=== PATIENT | female | born 1950 | race Caucasian/White ===

== ENCOUNTER → 2020-09-17 14:13 | Outpatient (CLI) | payer MEDICARE, OTHER, SELFPAY ==
--- NOTE | ~2020-09-17 | MM_ITS ---
EXAMINATION: MM screening [facility] BI w lupillo HISTORY: Screening mammogram TECHNIQUE: Craniocaudal and mediolateral oblique 3-D tomosynthesis images were obtained and synthetic 2-D images were generated. CAD analysis was submitted and interpreted. COMPARISON: 01/15/2019, 12/15/2017, 11/05/2016 BREAST PARENCHYMAL COMPOSITION: The breasts are heterogeneously dense, which may obscure small masses . FINDINGS: RIGHT BREAST: There is no evidence of suspicious mass, calcification, or architectural distortion to suggest malignancy. There has been no significant interval change. LEFT BREAST: An asymmetry is present in the middle third of the breast 6 cm from the nipple on the me diolateral oblique view. IMPRESSION: 1. Left breast asymmetry on the mediolateral oblique view. 2. Additional mammographic views and possible breast ultrasound are recommended. BI-RADS Category 0: Incomplete: Needs additional imaging evaluation. Reviewed, dictated and finalized at location A. IMPRESSION: 1. Left breast asymmetry on the mediolateral oblique view. 2. Additional mammographic views and possible breast ultrasound are recommended . BI-RADS Category 0: Incomplete: Needs additional imaging evaluation.
== END ==
PROVIDERS: Visit Provider Family Medicine
DX: Z12.31 Encounter for screening mammogram for malignant neoplasm of breast (principal); R92.8 Other abnormal and inconclusive findings on diagnostic imaging of breast
CPT/HCPCS: 77063; 77067

== ENCOUNTER → 2020-09-19 07:59 | Outpatient (CLI) | payer MEDICARE, SELFPAY ==
--- NOTE | ~2020-09-19 | MM_ITS ---
EXAMINATION: MM diagnostic mammo unilat LT HISTORY: Left breast asymmetry on screening mammogram TECHNIQUE: Additional 3-D tomosynthesis images of the left breast were performed and synthetic 2-D im ages were generated. CAD analysis was submitted and interpreted. COMPARISON: 09/17/2020, 01/15/2019, 12/15/2017, 11/05/2016 FINDINGS: The left breast asymmetry described on screening mammogram does not persist with spot compr ession. There is no evidence of suspicious mass, calcification, or architectural distortion to sugge st malignancy. IMPRESSION: 1. No mammographic evidence of malignancy. 2. Recommend routine screening mammography in one year. BI-RADS Category 1: Negative Reviewed, dictated and finalized at location A.
== END ==
PROVIDERS: PCP Family Medicine; Visit Provider Family Medicine
DX: R92.8 Other abnormal and inconclusive findings on diagnostic imaging of breast (principal)
CPT/HCPCS: 77065

== ENCOUNTER → 2022-02-13 10:02 | Outpatient (CLI) | payer MEDICARE, SELFPAY ==
--- NOTE | ~2022-02-13 | DEXA_ITS ---
Bone Density Report Name: JEN HOUSTON Age: 71 Sex: Female Ethnicity: White Date of : 1950 Indication: osteopenia; height loss; postmenopausal Referring Provider: HIMANSHU DOWNEY Study: Bone densitometry was performed. Exam Date: February 13, 2022 Accession number: [id number] Bone Density: Region BMD T-score Z-score Classification AP Spine (L1-L4) 0.879 -1.5 0.7 Osteopenia Femoral Neck (Left) 0.683 -1.5 0.4 Osteopenia Total Hip (Left) 0.823 -1.0 0.6 Normal Femoral Neck (Right) 0.670 -1.6 0.3 Osteopenia Total Hip (Right) 0.811 -1.1 0.5 Osteopenia Total Hip Mean 0.817 -1.1 0.6 Osteopenia World Health Organization criteria for BMD impression classify patients as: Normal (T-score at or above -1.0), Osteopenia (T-score between -1.0 and -2.5), or Osteoporosis (T-score at or below -2.5). 10-year Fracture Risk(1): Major Osteoporotic Fracture 9.9% Hip Fracture 1.7% Reported Risk Factors: [place] (), Neck BMD=0.670, BMI=22.1 (1) FRAX(R) Version 3.08. Fracture probability calculated for an untreated patient. Fracture probability may be lower if the patient has received treatment. Previous Exams: Region Exam Age BMD T-score BMD Change BMD Change Date g/cm2 vs Baseline vs Previous AP Spine(L1-L4) 02/13/2022 71 0.879 -1.5 0.003 -0.030* 01/15/2019 68 0.909 -1.3 0.032* 0.032* 07/21/2007 56 0.876 -1.6 Total Hip(Left) 02/13/2022 71 0.823 -1.0 -0.055* -0.043* 01/15/2019 68 0.866 -0.6 -0.012 -0.012 07/21/2007 56 0.878 -0.5 Total Hip(Right) 02/13/2022 71 0.811 -1.1 -0.080* -0.035* 01/15/2019 68 0.847 -0.8 -0.045* -0.045* 07/21/2007 56 0.892 -0.4 *Denotes significance at 95% confidence level, LSC for AP Spine = 0.022 g/cm2, LSC for Total Hip = 0.027 g/cm2 Clinical Information Provided by Patient: Has used the following medications: Vitamin D, Calcium, MTV Patient maximum height was 60.0 Menopause Age: 50 Drinks caffeinated beverages Onset of menses at age 14 Number of children 3 Impression: The patient has low bone mass, based on the Right Femoral Neck T-score. The patient has an estimated ten-year risk of hip fracture of 1.7% and an estimated ten-year risk of major fracture of 9.9%, based on the WHO FRAX algorithm. The BMD for the AP Spine(L1-L4) decreased, changing by -0.030 since the last
--- NOTE | ~2022-02-13 | MM_ITS ---
EXAMINATION: MM screening [facility] BI w lup[place] HISTORY: Screening mammogram TECHNIQUE: Craniocaudal and mediolateral oblique 3-D tomosynthesis images were obtained and synthetic 2-D images were generated. CAD analysis was submitted and interpreted. COMPARISON: 09/19/2020, 09/17/2020, 08/15/2019 BREAST PARENCHYMAL COMPOSITION: There are scattered areas of fibroglandular density. FINDINGS: There is no suspicious mass, calcification, or architectural distortion to suggest malignan cy in either breast. There has been no suspicious interval change. IMPRESSION: 1. No mammographic evidence of malignancy. 2. Recommend routine screening mammography in one year. BI-RADS Category 1: Negative Reviewed, dictated and finalized at location A.
== END ==
PROVIDERS: PCP Family Medicine; Visit Provider Family Medicine
DX: Z12.31 Encounter for screening mammogram for malignant neoplasm of breast (principal); M85.88 Other specified disorders of bone density and structure, other site; M85.852 Other specified disorders of bone density and structure, left thigh; M85.851 Other specified disorders of bone density and structure, right thigh
CPT/HCPCS: 77063; 77067; 77080

== ENCOUNTER 2022-11-02 13:17 | Outpatient (CLI) | payer MEDICARE, SELFPAY ==
[2022-11-02 14:21] LABS: Hematocrit 42.9 % (37.0-47.0); Hemoglobin 14.4 g/dL (12.0-15.0)
== END 2022-11-02 13:18 | disposition home or self-care (01) ==
PROVIDERS: PCP Family Medicine; Visit Provider Obstetrics & Gynecology
DX: N95.0 Postmenopausal bleeding (principal); Z01.818 Encounter for other preprocedural examination
CPT/HCPCS: 36415; 85014; 85018

== ENCOUNTER 2022-11-05 02:15 | Day surgery (SDC) | payer MEDICARE, SELFPAY ==
--- NOTE | 2022-11-01 13:10 | PC.NURSE ---
Report to the Outpatient Waiting Room, entrance under the green pavilion located off [facility], at time _0730 on date __11/05/22 . Planned Procedure Time: ___929 . Time changes happen often and if your time is changed the preop area will call you the afternoon before. - You and your visitor will be asked to self-screen and do not enter if you have any COVID symptoms. - Only one visitor is requested with a max of two and NO children visitors are allowed at this time. - The patient visitor may be requested to leave or wait in car when not with patient due to distancing restrictions. - A mask is optional within the hospital. Patients may have clear liquids (water, carbonated beverages, clear teas, apple juice) until 3 hours prior to surgery with a maximum of 20 ounces. - No food from midnight until time of surgery - Infants may have breast milk until 4 hours before surgery, formula 6 hours prior to surgery. - Children will be allowed to drink immediately following surgery. If applicable, please bring a bottle or sippy cup to assist with drinking. Juice, water, soda, and popsicles are readily available. For infants on formula, please bring formula the day of surgery. Pacifiers are allowed. Take the following medications with a SIP of water the morning of surgery: _NONE Medications to discontinue per physician ALL VITAMINS AND SUPPLEMENTS 3 DAYS PER OP Date to take last dose__11/01/22 Please no make-up, nail zimbabwean, hairspray, perfume, deodorant, or body powder the day of surgery. No jewelry (including any body piercings) or valuables the day of surgery, leave them at home. Please take a shower or bath the night before, or the morning of, surgery with an antibacterial soap. Wear comfortable, loose fitting clothing. Children are encouraged to wear pajamas. - Jewelry must be removed prior to entering the operating room. Rings and piercings that are not removed may be cut off. - The hospital will not accept responsibility for valuables. - Please leave all valuables, including medications, at home the day of surgery. If you are going home after surgery, a licensed jinriksha driver must drive you home. - NO public transportation without another adult if you receive anesthesia. - We recommend that an adult stay with you for 24 hours following discharge. - We also recommend that you do not drive, make important decision, drink alcoholic beverages, or take any drugs that were not prescribed by your health care provider for at least 24 hours after your discharge time. Follow any additional instructions given to you from your surgeon. If you or anyone in your household have experienced Covid symptoms in the past week, please notify your surgeon or the nurse liaison at the phone number below for possible testing. Telephone instructions given to __PATIENT and asked if any additional questions and then verbalized understanding. Patient advised to call surgeon office or pre surgery nurse liaison [phone] if any additional questions.
[2022-11-01 13:18] VITALS: BMI 22.4
--- NOTE | 2022-11-02 07:51 | P.HP_ITS ---
H&P: HPI History of Present Illness Date/Time: 11/02/22 07:51 Chief Complaint: Postmenopausal bleeding Narrative: 72-year-old female with postmenopausal bleeding. Ultrasound shows some fluid in the uterus so she was offered hysteroscopy/dilatation curettage. Risks and benefits reviewed in full detail. She received the ACOG handouts entitled hysteroscopy as well as dilatation curettage. She had all questions answered and asked to proceed PMFSH Social History Social History Smoking status: Never smoker Alcohol intake: current Drinks per week: 3 Spiritual care concerns: No Meds Home Medications and Allergies Home Medications Medication Instructions Recorded Confirmed Type Lactobacillus 1 cap PO DAILY 11/01/22 11/01/22 History acidophilus-Bifidobac.animalis 2.5 billion cell capsule (Daily Probiotic) aspirin 81 mg tablet,delayed 81 mg PO HS 11/01/22 11/01/22 History release (Adult Low Dose Aspirin) calcium carbonate 600 mg-vitamin 1 tablet PO DAILY 11/01/22 11/01/22 History D3 10 mcg (400 unit) tablet (Calcium 600 + D(3)) cholecalciferol (vitamin D3) 125 125 mcg PO 2XW 11/01/22 11/01/22 History mcg (5,000 unit) tablet estradiol 0.01% (0.1 mg/gram) 0.1 g vaginal 3XW 11/01/22 11/01/22 History vaginal cream ginkgo biloba 40 mg tablet 40 mg PO DAILY 11/01/22 11/01/22 History lorazepam 0.5 mg tablet 0.5 mg PO PRN PRN Anxiety 11/01/22 11/01/22 History sumatriptan succinate 100 mg tablet 100 mg PO PRN PRN Migraine Headache 11/01/22 11/01/22 History zolpidem 5 mg tablet 5 mg PO HS 11/01/22 11/01/22 History Allergies Allergy/AdvReac Type Severity Reaction Status Date / Time Sulfa (Sulfonamide Allergy Severe Muscle Unverified 11/01/22 12:58 Antibiotics) Spasms Penicillins Allergy Mild Unknown Unverified 11/01/22 12:58 Exam Const: General: cooperative, healthy appearing, comfortable and well groomed Nutritional Appearance: average body habitus Orientation/consciousness: oriented to person, oriented to place and oriented to time Resp: Effort & Inspection: normal respiratory effort Cardio: Rate: regular rate Rhythm: regular rhythm Heart sounds: S1 normal heart sound present and S2 normal heart sound present GI: Inspection: normal to inspection : External Female Exam: normal external appearance Speculum Exam - Vagina: normal appearance of the vagina and vaginal bleeding Speculum Exam - Cervix: normal appearance of the cervix Bimanual exam- vagina & uterus: non- tender and enlarged Bimanual Exam- Adnexa, other: normal adnexae Assessment and Plan Assessment and plan (1) Postmenopausal bleeding: Code(s): N95.0 - Postmenopausal bleeding Status: Acute Plan Hysteroscopy/dilatation and curettage
--- NOTE | 2022-11-05 06:10 | WPDHPUPDATE1 ---
History and Physical Update Update Date/Time: 11/05/22 06:10 History and Physical has been reviewed, including an updated exam of the patient. There are NO changes in the patient's condition. Risks, benefits, and alternatives have been discussed and questions answered. Patient agrees to proceed with procedure.
[2022-11-05 07:40] VITALS: BP 125/70; PULSE 88; RESP 14; TEMP 36.1; O2SAT 100; BMI 21.9
[2022-11-05] MEDS: LACTATED RINGERS 1,000 ML 30 ML IV CONT (07:50)
[2022-11-05] MEDS: ACETAMINOPHEN 500 MG TABLET 1000 MG PO (07:59)
--- NOTE | 2022-11-05 08:33 | WPDANESEPPF ---
Anes - Initial Pre Proc Eval Procedure: Operation Date: 11/05/22 09:30 Proposed Procedures p Hysteroscopy, Dilation and Curettage - Mega Fortune MD Date/Time: 11/05/22 08:33 Surgeon: Mega Fortune MD Pre Op Diagnosis: post menopausal bleeding Patient Data Age: 72 Gender: F Height: 1.47 m Weight: 47.55 kg Last Vital Signs Temp 36.1 C L 11/05/22 07:40 Pulse 88 11/05/22 07:40 Resp 14 11/05/22 07:40 BP 125/70 11/05/22 07:40 Pulse Ox 100 11/05/22 07:40 O2 Del Method Room Air 11/05/22 07:40 Allergies Allergy/AdvReac Type Severity Reaction Status Date / Time Sulfa (Sulfonamide Allergy Severe Muscle Verified 11/05/22 07:46 Antibiotics) Spasms Penicillins Allergy Mild Unknown Verified 11/05/22 07:46 Home Medications Medication Instructions Recorded Confirmed Type Lactobacillus 1 cap PO DAILY 11/01/22 11/05/22 History acidophilus-Bifidobac.animalis 2.5 billion cell capsule (Daily Probiotic) aspirin 81 mg tablet,delayed 81 mg PO HS 11/01/22 11/01/22 History release (Adult Low Dose Aspirin) calcium carbonate 600 mg-vitamin 1 tablet PO DAILY 11/01/22 11/05/22 History D3 10 mcg (400 unit) tablet (Calcium 600 + D(3)) cholecalciferol (vitamin D3) 125 125 mcg PO 2XW 11/01/22 11/05/22 History mcg (5,000 unit) tablet estradiol 0.01% (0.1 mg/gram) 0.1 g vaginal 3XW 11/01/22 11/01/22 History vaginal cream ginkgo biloba 40 mg tablet 40 mg PO DAILY 11/01/22 11/05/22 History lorazepam 0.5 mg tablet 0.5 mg PO PRN PRN Anxiety 11/01/22 11/01/22 History sumatriptan succinate 100 mg tablet 100 mg PO PRN PRN Migraine Headache 11/01/22 11/01/22 History zolpidem 5 mg tablet 5 mg PO HS 11/01/22 11/01/22 History hydrocodone 5 mg-acetaminophen 325 1 tablet PO Q4H PRN pain #14 tabs 11/05/22 Rx mg tablet Patient hx anesthesia problems: none Family hx anesthesia problems: none Results Review: All pre-operative results and documents have been reviewed as part of the pre-operative evaluation. [facility] Social History Social History Smoking status: Never smoker Alcohol intake: current Drinks per week: 3 Living arrangements: with family Spiritual care concerns: No Anes - Eval Final PreProcedure Day of Procedure 11/05/22 08:33 Patient weight: normal Heart: regular rate and rhythm Lungs: clear to auscultation Airway: Mallampati scale class II Neurological: alert and oriented Last oral intake: >/= 8 hours ASA classification: II Emergent: no Anesthetic plan: proceed Anesthesia type and monitoring: general GIVS and standard monitoring Results Review: All pre-operative results and documents have been reviewed as part of the pre-operative evaluation. Informed Consent: The patient's anesthetic plan and its attendant risks and benefits were discussed with the patient/family/POA. Questions were solicited and answers provided to the satisfaction of the patient/family/POA.
[2022-11-05] MEDS: LIDOCAINE HCL 1% PF 30 ML VIAL 10 ML INFILTRATE (09:14)
[2022-11-05 09:21] VITALS: BP 133/103; PULSE 69; RESP 16; O2SAT 97
--- NOTE | 2022-11-05 09:22 | P.OP_ITS ---
Procedure Note - Detailed Date of Procedure 11/05/22 Pre-op Diagnosis post menopausal bleeding Post-op Diagnosis Same Procedure Performed Hysteroscopy/dilatation curettage Surgeon Mega Fortune MD Anesthesia MAC and Local Indications 72-year-old female with fluid in the uterus questionable postmenopausal bleeding Findings cervical os was stenotic. Once in the uterus sounded to 8cm. Mucus was present was clear slimy appearance. Each fallopian tube could be seen seen and no other abnormality seen otherwise Description of Procedure patient was prepped draped in the normal sterile fashion placed in the dorsal lithotomy position. Under excellent IV sedation weighted speculum placed in posterior fornix vagina. Anterior lip of the cervix grasped with single-tooth tenaculum. 2.5cc 1% xylocaine anesthesia placed at 2, 4, 8, 10:00 a.m. of the cervix. The cervical os was noted be stenotic and os Finders were found. After opening os the uterus sounded to 8cm. Serial dilatation with fragmented d ilators performed followed by passage of the 5mm visualizing hysteroscope. Normal saline was used as visualizing medium. Mucus was present but no a abnormalities seen after each fallopian tube os could be seen. The uterus was then scraped over the entire 360? until a good grating sound was heard. The instruments removed all were accounted for she tolerated the procedure well. All sponge, needle, instrument counts were correct. There were no immediate complications Estimated Blood Loss 5 Drains No Packing No Pathology Yes Complications No immediate complications Condition Stable Disposition PACU
[2022-11-05 09:45] VITALS: BP 105/64; PULSE 71; RESP 20
[2022-11-05 10:15] VITALS: BP 105/64; PULSE 71; RESP 20
== END 2022-11-05 10:20 | disposition home or self-care (01) ==
PROVIDERS: PCP Family Medicine; Visit Provider Obstetrics & Gynecology
PROC: 0U5B8ZZ Destruction of Endometrium, Via Natural or Artificial Opening Endoscopic (ICD-10-PCS; CPT 58563; principal; 2022-11-05 09:30)
DX: N95.0 Postmenopausal bleeding (principal); N85.8 Other specified noninflammatory disorders of uterus
CPT/HCPCS: 58558; 88305; A9270; J2704; J7030; J7120

== ENCOUNTER 2023-10-19 10:07 | Outpatient (CLI) | payer MEDICARE, SELFPAY ==
--- NOTE | 2023-10-19 10:03 | EST_ITS ---
Patient Info Name: Nora Monteiro Age: 73 years : 1950 Gender: Female Ht: 58 in Wt: 110 lbs BSA: 1.44 m2 HR: 77 bpm BP: 139 / 84 mmHg Heart Rhythm: Sinus Rhythm Exam Date: 10/19/2023 10:05 AM Exam Location: Echo Lab Patient Status: Outpatient Admit Date: 10/19/2023 Staff Ordering Physician: Moises Domingo MD Family Day Care Provider: Lily Palma RDCS Attending Provider: Referring Physician: Jose L REID; Exercise Technologist: Lily Palma RDCS Exercise Physician: Yevgeniy Pena DO Exam Type: CA stress echo Study Info Indications R07.9 - Chest pain, unspecified Treadmill exercise stress echocardiogram is performed. Summary 1. 1. Negative Fidel exercise stress test for ischemic ST changes by ECG criteria. 2. 2. Reduced functional capacity, achieving 4.7 METs of workload. 3. 3. Appropriate HR response to exercise. 4. 4. Appropriate HR recovery at 1 minute post exercise. 5. 5. Negative stress echocardiogram for ischemia by wall motion analysis. 6. 6. Patient informed of the above results. Stress Echo Findings Left Ventricle Appropriate increase in LV endocardial thickening with systole. Appropriate augmentation of contactility with systole. No wall motion abnormality. Left Ventricle Normal LV systolic function, no wall motion abnormality. Protocol: Fidel Stress ECG Details Stage: REST Duration (min): 1 min : 19 sec Speed (mph): 0.0 Grade (%): 0 HR (bpm): 76 SBP (mmHg): 139 DBP (mmHg): 84 METS: --- Stage: REST Duration (min): 1 min : 53 sec Speed (mph): 0.0 Grade (%): 0 HR (bpm): 81 SBP (mmHg): 139 DBP (mmHg): 84 METS: --- Stage: REST Duration (min): 12 min : 31 sec Speed (mph): 0.0 Grade (%): 0 HR (bpm): 79 SBP (mmHg): 139 DBP (mmHg): 84 METS: --- Stage: STAGE 1 Duration (min): 1 min : 0 sec Speed (mph): 1.7 Grade (%): 10 HR (bpm): 122 SBP (mmHg): 139 DBP (mmHg): 84 METS: --- Stage: STAGE 1 Duration (min): 2 min : 0 sec Speed (mph): 1.7 Grade (%): 10 HR (bpm): 133 SBP (mmHg): 139 DBP (mmHg): 84 METS: --- Stage: STAGE 1 Duration (min): 3 min : 0 sec Speed (mph): 1.7 Grade (%): 10 HR (bpm): 133 SBP (mmHg): 141 DBP (mmHg): 98 METS: --- Stage: STAGE 2 Duration (min): 0 min : 8 sec Speed (mph): 0.0 Grade (%): 0 HR (bpm): 132 SBP (mmHg): 141 DBP (mmHg): 98 METS: --- Stage: RECOVERY Duration (min): 0 min : 51 sec Speed (mph): 0.0 Grade (%): 0 HR (bpm): 95 SBP (mmHg): 141 DBP (mmHg): 98 METS: --- Stage: RECOVERY Duration (min): 1 min : 51 sec Speed (mph): 0.0 Grade (%): 0 HR (bpm): 85 SBP (mmHg): 141 DBP (mmHg): 98 METS: --- Stage: RECOVERY Duration (min): 2 min : 51 sec Speed (mph): 0.0 Grade (%): 0 HR (bpm): 75 SBP (mmHg): 141 DBP (mmHg): 98 METS: --- Stage: RECOVERY Duration (min): 3 min : 15 sec Speed (mph): 0.0 Grade (%): 0 HR (bpm): 93 SBP (mmHg): 141 DBP (mmHg): 98 METS: --- Res
== END 2023-10-19 10:08 | disposition home or self-care (01) ==
LOC: ANHCARD 10:07
PROVIDERS: PCP Family Medicine; Visit Provider Family Medicine
DX: R06.02 Shortness of breath (principal); R07.9 Chest pain, unspecified
CPT/HCPCS: 93351

== ENCOUNTER → 2023-11-07 12:49 | Outpatient (CLI) | payer MEDICARE, SELFPAY ==
--- NOTE | ~2023-11-07 | MM_ITS ---
EXAMINATION: MM screening [facility] BI w lup[place] HISTORY: Screening mammogram TECHNIQUE: Craniocaudal and mediolateral oblique 3-D tomosynthesis images were obtained and synthetic 2-D images were generated. CAD analysis was submitted and interpreted. COMPARISON: 02/13/2022 bilateral screening mammogram 09/19/2020 diagnostic left mammogram 09/17/2020, bilateral screening mammogram examinations BREAST PARENCHYMAL COMPOSITION: The breasts are heterogeneously dense, which may obscure small masses . FINDINGS: There is no evidence of suspicious mass, calcification, or architectural distortion to sugg est malignancy in either breast. There has been no suspicious interval change. IMPRESSION: 1. No mammographic evidence of malignancy. 2. Recommend routine screening mammography in one year. BI-RADS Category 1: Negative Reviewed, dictated and finalized at location A. [employer]ICAL ASSISTANT
== END ==
PROVIDERS: PCP Family Medicine; Visit Provider Family Medicine
DX: Z12.31 Encounter for screening mammogram for malignant neoplasm of breast (principal)
CPT/HCPCS: 77063; 77067

== ENCOUNTER 2024-03-30 09:52 | Outpatient (CLI) | payer MEDICARE, SELFPAY | END 2024-03-30 09:53 | disposition home or self-care (01) | LOC: ANHAUDIO 09:53 | PROVIDERS: PCP Family Medicine; Visit Provider Family Medicine | DX: H90.3 Sensorineural hearing loss, bilateral (principal) | CPT/HCPCS: 92557; 92567 ==

== ENCOUNTER 2024-05-03 09:07 | Day surgery (SDC) | payer MEDICARE, SELFPAY ==
[2024-04-20 09:34] VITALS: BMI 24.2
[2024-05-03 10:11] VITALS: BMI 23.3
[2024-05-03] MEDS: LACTATED RINGERS 1,000 ML 150 ML IV CONT (10:22)
--- NOTE | 2024-05-03 10:51 | PM.HPGS ---
History of Present Illness History of Present Illness Consent: Risks, benefits, and alternatives have been discussed and questions answered. Patient agrees to proceed with procedure. Chief complaint: Family HX Colon CA, Personal HX Colon Polyps Narrative: Nora Monteiro is a 73 year old female presents for screening colonoscopy. Patient's current weight appetite and bowel movements are normal. She denies abdominal pain. Patient has had no bleeding. Family history significant that her brother had colon cancer. Patient's past history also significant for a tubulovillous adenoma removed in 2019 and adenomatous on previous colonoscopies as well. Patient presents today for screening colonoscopy. Review of Systems Review of Systems: All systems reviewed & are unremarkable except as noted in HPI and below PMFSH Past Medical History Medical History Disorder of bone, unspecified Family history of malignant neoplasm of digestive organs Insomnia, unspecified Migraine without aura, not intractable, without status migrainosus Panic disorder [episodic paroxysmal anxiety] Postmenopausal atrophic vaginitis Postmenopausal bleeding Primary generalized (osteo)arthritis Pure hypercholesterolemia, unspecified Surgical History Surgical History H/O dilation and curettage Social History Social History (Updated 04/17/24 @ 14:07 by China Larson MA) Smoking status: Never smoker Second hand tobacco smoke exposure: No Alcohol intake: current Drinks per week: 4 Substance use: never Substance use type: does not use Do You Feel Safe in your Home?: Yes Lack of Transportation: No Lack of Food: Never True Current Housing: I Have Housing Concerned About Future Housing: No Difficulty Paying Gas/Electric Bills: No Difficulty Paying for Meds: No Currently Unemployed: YES Difficulty w/ Childcare or Family Care: No Living arrangements: with family Occupation/Education: retired Gender identity (if verbalized by the patient): Female Sexual Orientation (if Verbalized by the Patient): Straight or Heterosexual Spiritual care concerns: No Meds Home Medications and Allergies Home Medications Medication Instructions Recorded Confirmed Type Lactobacillus 1 cap PO DAILY 11/01/22 05/03/24 History acidophilus-Bifidobac.animalis 2.5 billion cell capsule (Daily Probiotic) aspirin 81 mg tablet,delayed 81 mg PO HS 11/01/22 05/03/24 History release (Adult Low Dose Aspirin) calcium carbonate 600 mg-vitamin 1 tablet PO DAILY 11/01/22 05/03/24 History D3 10 mcg (400 unit) tablet (Calcium 600 + D(3)) cholecalciferol (vitamin D3) 125 125 mcg PO 2XW 11/01/22 05/03/24 History mcg (5,000 unit) tablet ginkgo biloba 40 mg tablet 40 mg PO DAILY 11/01/22 05/03/24 History lorazepam 0.5 mg tablet 0.5 mg PO DAILY PRN Anxiety #60 09/29/23 04/26/24 Rx tabs escitalopram oxalate 10 mg tablet 10 mg PO DAILY #90 tabs 12/30/23 05/03/24 Rx sumatriptan succinate 100 mg tablet 100 mg PO PRN PRN Migraine 01/03/24 05/03/24 Rx Headache #9 tabs estradiol 0.01% (0.1 mg/gram) See Rx Instructions .Route 03/28/24 05/03/24 Rx vaginal cream .COMPLEX #43 grams zolpidem 5 mg tablet 5 mg PO HS #90 tabs 04/10/24 05/03/24 Rx Allergies Allergy/AdvReac Type Severity Reaction Status Date / Time Sulfa (Sulfonamide Allergy Severe Muscle Verified 05/03/24 10:04 Antibiotics) Spasms Penicillins Allergy Mild Unknown Verified 05/03/24 10:04 Exam Narrative: Physical exam reveals patient signs stable. HEENT is unremarkable. Patient is anicteric. Is are clear to auscultation and percussion. Heart is without murmur or extra sounds. Abdomen bowel sounds are present soft nontender with no organomegaly. Digital external rectal exam is normal. Assessment and Plan Assessment and plan (1) Family history
--- NOTE | 2024-05-03 11:08 | WPDANESEPPF ---
Anes - Initial Pre Proc Eval Procedure: Operation Date: 05/03/24 11:30 Proposed Procedures p Diagnostic Colonoscopy - Fernando Mason MD Date/Time: 05/03/24 11:08 Surgeon: Fernando Mason MD Pre Op Diagnosis: Family HX Colon CA, Personal HX Colon Polyps Patient Data Age: 73 Gender: F Height: 1.47 m Weight: 50.8 kg Allergies Allergy/AdvReac Type Severity Reaction Status Date / Time Sulfa (Sulfonamide Allergy Severe Muscle Verified 05/03/24 10:04 Antibiotics) Spasms Penicillins Allergy Mild Unknown Verified 05/03/24 10:04 Home Medications Medication Instructions Recorded Confirmed Type Lactobacillus 1 cap PO DAILY 11/01/22 05/03/24 History acidophilus-Bifidobac.animalis 2.5 billion cell capsule (Daily Probiotic) aspirin 81 mg tablet,delayed 81 mg PO HS 11/01/22 05/03/24 History release (Adult Low Dose Aspirin) calcium carbonate 600 mg-vitamin 1 tablet PO DAILY 11/01/22 05/03/24 History D3 10 mcg (400 unit) tablet (Calcium 600 + D(3)) cholecalciferol (vitamin D3) 125 125 mcg PO 2XW 11/01/22 05/03/24 History mcg (5,000 unit) tablet ginkgo biloba 40 mg tablet 40 mg PO DAILY 11/01/22 05/03/24 History lorazepam 0.5 mg tablet 0.5 mg PO DAILY PRN Anxiety #60 09/29/23 04/26/24 Rx tabs escitalopram oxalate 10 mg tablet 10 mg PO DAILY #90 tabs 12/30/23 05/03/24 Rx sumatriptan succinate 100 mg tablet 100 mg PO PRN PRN Migraine 01/03/24 05/03/24 Rx Headache #9 tabs estradiol 0.01% (0.1 mg/gram) See Rx Instructions .Route 03/28/24 05/03/24 Rx vaginal cream .COMPLEX #43 grams zolpidem 5 mg tablet 5 mg PO HS #90 tabs 04/10/24 05/03/24 Rx Patient hx anesthesia problems: none Family hx anesthesia problems: none Results Review: All pre-operative results and documents have been reviewed as part of the pre-operative evaluation. [facility] Past Medical History Medical History Disorder of bone, unspecified Family history of malignant neoplasm of digestive organs Insomnia, unspecified Migraine without aura, not intractable, without status migrainosus Panic disorder [episodic paroxysmal anxiety] Postmenopausal atrophic vaginitis Postmenopausal bleeding Primary generalized (osteo)arthritis Pure hypercholesterolemia, unspecified Surgical History Surgical History H/O dilation and curettage Social History Social History Smoking status: Never smoker Second hand tobacco smoke exposure: No Alcohol intake: current Drinks per week: 4 Substance use: never Substance use type: does not use Do You Feel Safe in your Home?: Yes Lack of Transportation: No Lack of Food: Never True Current Housing: I Have Housing Concerned About Future Housing: No Difficulty Paying Gas/Electric Bills: No Difficulty Paying for Meds: No Currently Unemployed: YES Difficulty w/ Childcare or Family Care: No Living arrangements: with family Occupation/Education: retired Gender identity (if verbalized by the patient): Female Sexual Orientation (if Verbalized by the Patient): Straight or Heterosexual Spiritual care concerns: No Anes - Eval Final PreProcedure Day of Procedure 05/03/24 11:08 Patient weight: normal Heart: regular rate and rhythm Lungs: clear to auscultation Airway: Mallampati scale class II Neurological: alert and oriented Last oral intake: >/= 8 hours ASA classification: II Emergent: no Anesthetic plan: proceed Anesthesia type and monitoring: general GIVS and standard monitoring Results Review: All pre-operative results and documents have been reviewed as part of the pre-operative evaluation. Informed Consent: The patient's anesthetic plan and its attendant risks and benefits were discussed with the patient/family/POA. Questions were solicited and answers provided to the satisfaction of the
[2024-05-03 11:46] VITALS: BP 99/59; PULSE 90; RESP 15; O2SAT 100
[2024-05-03 11:56] VITALS: BP 96/66; PULSE 91; RESP 16; O2SAT 100
--- NOTE | 2024-05-03 11:58 | WPDANESPN ---
Anes - Prog Note Post-Op Date/Time: 05/03/24 11:58 Cardiovascular status: normal Respiratory status: normal Airway patency: baseline Mental status: baseline Post-Op hydration status: normal Vital Signs: Last Vital Signs Pulse 91 05/03/24 11:56 Resp 16 05/03/24 11:56 BP 96/66 L 05/03/24 11:56 Pulse Ox 100 05/03/24 11:56 O2 Del Method Room Air 05/03/24 11:56 Pain Score (VAS): 0/10 I/O: Intake & Output 05/02/24 05/03/24 05/03/24 23:59 07:59 15:59 Intake Total 700 Balance 700 Patient Feedback: Patient satisfied with anesthetic care.
[2024-05-03 12:06] VITALS: BP 109/56; PULSE 96; RESP 16; O2SAT 100
== END 2024-05-03 12:09 | disposition home or self-care (01) ==
PROVIDERS: PCP Family Medicine; Visit Provider Internal Medicine Gastroenterology
PROC: 0DJD8ZZ Inspection of Lower Intestinal Tract, Via Natural or Artificial Opening Endoscopic (ICD-10-PCS; CPT 45378; principal; 2024-05-03 11:30)
DX: Z86.010 Personal history of colon polyps (principal); Z80.0 Family history of malignant neoplasm of digestive organs; K57.30 Diverticulosis of large intestine without perforation or abscess without bleeding; K64.8 Other hemorrhoids
CPT/HCPCS: G0105

== ENCOUNTER 2024-07-19 10:22 | Outpatient (CLI) | payer MEDICARE, SELFPAY ==
--- NOTE | ~2024-07-19 | CT_ITS ---
Non-contrast CT scan of the Abdomen and Pelvis Clinical indication: Abdominal distention Technique: 2.5 mm axial scans were obtained through the abdomen and pelvis without intravenous or or al contrast. Dose reduction technique was used on this scan by utilizing automated exposure control a nd iterative reconstruction technique. The dose-length product (DLP) was 205.30 mGy-cm. Findings: Images through the lung bases reveal no abnormalities. There is no evidence of renal or ureteral calculi. The kidneys and the ureters are nondilated. The liver, spleen, pancreas, gallbladder, and adrenals appear normal. There are atherosclerotic calcifications of the aorta. There is no evidence of bowel obstruction. Images through the pelvis were performed. There is no evidence of ascites or lymphadenopathy. Urinary bladder unremarkable. No pelvic mass seen. Impression: No significant abnormality seen. Reviewed, dictated and finalized at [facility]. Impression: No significant abnormality seen.
== END 2024-07-19 10:23 | disposition home or self-care (01) ==
LOC: ANHIMG 10:24
PROVIDERS: PCP Family Medicine; Visit Provider Family Medicine
DX: R14.0 Abdominal distension (gaseous) (principal); R63.0 Anorexia
CPT/HCPCS: 74176

== ENCOUNTER 2025-06-17 08:02 | Outpatient (CLI) | payer MEDICARE, SELFPAY ==
--- NOTE | ~2025-06-17 | DEXA_ITS ---
Bone Density Report Name: JEN HOUSTON Age: 74 Sex: Female Ethnicity: White Date of : 1950 Indication: osteopenia; height loss; Referring Provider: HIMANSHU DOWNEY Study: Bone densitometry was performed. Exam Date: June 17, 2025 Accession number: [id number] Bone Density: Region BMD T-score Z-score Classification AP Spine(L1-L4) 0.848 -1.8 0.6 Osteopenia Femoral Neck (Left) 0.643 -1.9 0.2 Osteopenia Total Hip (Left) 0.871 -0.6 1.2 Normal Femoral Neck (Right) 0.648 -1.8 0.3 Osteopenia Total Hip (Right) 0.863 -0.6 1.1 Normal Total Hip Mean 0.867 -0.6 1.2 Normal World Health Organization criteria for BMD impression classify patients as: Normal (T-score at or above -1.0), Osteopenia (T-score between -1.0 and -2.5), or Osteoporosis (T-score at or below -2.5). 10-year Fracture Risk(1): Major Osteoporotic Fracture 12% Hip Fracture 2.9% Reported Risk Factors: [place] (), Neck BMD=0.643, BMI=24.5 (1) FRAX(R) Version 3.08. Fracture probability calculated for an untreated patient. Fracture probability may be lower if the patient has received treatment. Previous Exams: Region Exam Age BMD T-score BMD Change BMD Change Date g/cm2 vs Baseline vs Previous AP Spine (L1-L4) 06/17/2025 74 0.848 -1.8 -0.022 (-2.5%) -0.075 (-8.1%) 10/13/2015 65 0.923 -1.1 0.053 (6.1%)# 0.053 (6.1%)# 08/25/2013 62 0.869 -1.6 Total Hip(Left) 06/17/2025 74 0.871 -0.6 0.004 (0.5%)# 0.002 (0.2%) 10/13/2015 65 0.869 -0.6 0.002 (0.3%)# 0.002 (0.3%)# 08/25/2013 62 0.867 -0.6 Total Hip(Right) 06/17/2025 74 0.863 -0.6 -0.042 (-4.7%) -0.004 (-0.5%) 10/13/2015 65 0.868 -0.6 -0.038 (-4.2%) -0.038 (-4.2%) 08/25/2013 62 0.905 -0.3 *Denotes significance at 95% confidence level, LSC for AP Spine = 0.022 g/cm2, LSC for Total Hip = 0.027 g/cm2 # Denotes dissimilar scan types or analysis methods Clinical Information Provided by Patient: Has used the following medications: Vitamin D, Calcium Patient maximum height was 60.0 Drinks caffeinated beverages Onset of menses at age 14 Number of children 3 Impression: The patient has low bone mass, based on the Left Femoral Neck T-score. The patient has an estimated ten-year risk of hip fracture of 2.9% and an estimated ten-year risk of major fracture of 12%, based on the WHO FRAX algorithm. The BMD for the AP Spine (L1-L4) decreased, changing by -8.1% since the last DXA exam. Discussion: BONE DENSITY IS LOW AT ONE OR MORE SKELETAL SITES. This patient's lowest T-score is low at one or more skeletal sites. It meets the World Health Organization's (WHO) criteria for ?low bone mass? (T-score between -1.0 and -2.5). The patient's 10-year risk of fracture as calculated by FRAX is less than the threshold where pharmacological therapy is recommended by the National Osteoporosis Foundation (NOF). However, all treatment decisions require clinical judgment and consideration of individual patient factors, including patient preferences, comorbidities, previous drug use, risk factors not captured in the FRAX model (e.g., frailty, falls, vitamin D deficiency, increased bone turnover, interval significant decline in bone density) and possible under or overestimation of fracture risk by FRAX. The patient should follow a healthful lifestyle (good nutrition with adequate calcium and vitamin D, and appropriate weight-bearing exercise). Follow-Up: Consider repeating this study in 2 years to reassess this patient's status, or sooner if there is some new clinical indication. Reported by: JADE on 06/17/2025 8:40:00 AM. Reviewed, dictated and finalized at location A.
--- OUTSIDE RECORDS SUMMARY | 2025-06-17 08:09 | XMS_ITS | Encounter Summary ---
Author Organization [facility] Facility Care Team Providers Care Milk Wagon Driver Name Role Phone Moises Domingo MD Primary Care Provider [phone] Encounter Details Date Type Department Care Team (Latest Contact Info) Description 08/25/2017 Orders Only [facility] CLINCONV ProviderManuel MD [address] [place] [id number] Social History Tobacco Use Types Packs/Day Years Used Date Smoking Tobacco: Never Assessed Comments Unknown Sex and Gender Information Value Date Recorded Sex Assigned at Not on file Legal Sex Female 2:47 AM PAPER SLITTER Gender Identity Not on file Sexual Orientation Not on file documented as of this encounter Plan of Treatment Not on file documented as of this encounter Procedures Procedure Name Priority Date/Time Associated Diagnosis Comments PROCEDURE - RESULT 08/16/2017 12 :00 AM CDT documented in this encounter Results * PROCEDURE - RESULT (08/16/2017 12:00 AM CDT) Narrative 08/16/2017 12:00 AM CDT Ordered by an unspecified provider. Historical Provider Final Res ult documented in this encounter Visit Diagnoses Not on filedocumented in this encounter Care Teams Milk Wagon Driver Relationship Specialty Start Date End Date Moises Domingo MD [facility] [place] [address] PCP - General 01/12/13 documented as of this encounter
--- OUTSIDE RECORDS SUMMARY | 2025-06-17 08:09 | XMS_ITS | Encounter Summary ---
Author Organization [facility] Facility Care Team Providers Care Film Printer Name Role Phone Moises Domingo MD Primary Care Provider [phone] Encounter Details Date Type Department Care Team (Latest Contact Info) Description 07/21/2017 Orders Only [facility] CLINCONV ProviderManuel MD [address] [place] [id number] Social History Tobacco Use Types Packs/Day Years Used Date Smoking Tobacco: Never Assessed Comments Unknown Sex and Gender Information Value Date Recorded Sex Assigned at Not on file Legal Sex Female 2:47 AM MARKETING LEAD Gender Identity Not on file Sexual Orientation Not on file documented as of this encounter Plan of Treatment Not on file documented as of this encounter Procedures Procedure Name Priority Date/Time Associated Diagnosis Comments PROCEDURE - RESULT 07/11/2017 12 :00 AM CDT documented in this encounter Results * PROCEDURE - RESULT (07/11/2017 12:00 AM CDT) Narrative 07/11/2017 12:00 AM CDT Ordered by an unspecified provider. Historical Provider Final Res ult documented in this encounter Visit Diagnoses Not on filedocumented in this encounter Care Teams Film Printer Relationship Specialty Start Date End Date Moises Domingo MD [facility] [place] [address] PCP - General 01/12/13 documented as of this encounter
--- OUTSIDE RECORDS SUMMARY | 2025-06-17 08:09 | XMS_ITS | Clinical Summary ---
Author Organization [facility] at the [facility] [place] Address [address] [place] [address] Care Team Providers Care Underwear Cutter Name Role Phone oMises Domingo MD Primary Care Provider [phone] Allergies Active Allergy Reactions Criticality Noted Date Comments Penicillin V Potassium Anaphylaxis High 08/13/2019 anaphylaxis Sulfa (Sulfonamide Antibiotics) Other (See comments) Low 08/13/2019 back paralysis Medications estrogens, conjugated (PREMARIN ORAL) Rx: Premarin A ctive SUMAtriptan (IMITREX) 25 mg tablet Rx: Sumatriptan Acti ve zolpidem (AMBIEN) 5 mg tablet 0 9 Active HYDROcodone-magen taminophen (NORCO) 5-325 mg per tablet 9 Active Active Problems Problem Noted Date Diagnosed Date Sleep disorder 08/23/2019 Migraine 08/23/2019 Varicose veins of both lower extremities with pa in 07/07/2017 Immunizations Immunization Administration Dates Next Due Influenza, Trivalent, High D ose, Split, Preservative Free, Intramuscular 10/02/2016,09/30/2015 Influenza, Trivalent, IM (MDV) 09/16/2014 Pneumococcal Conjugate PCV 13 09/30/2015 Surgical History Surgery Date Site/Laterality Comments SECTION BREAST LUMPECTOMY VARICOSE VEIN SURGERY 07/21/2017 Left LT GSV EVLT VARICOSE VEIN SURGERY 08/25/2017 Right RT GSV EVLT VEIN SURGERY 10/10/2019 Right Medical History Medical History Date Comments Arthritis Family History Medical History Relation Name Comments Cancer Father Diabetes Father Heart disease Father Stroke Father Kidney failure Mother Relation Name Status Comments Father Alive Mother Social History Tobacco Use Types Packs/Day Years Used Date Smoking Tobacco: Never Smokeless Tobacco: Never Alcohol Use Standard Drinks/Week Comments Yes 0 (1 standard drink = 0.6 oz pur e alcohol) AUDIT-C Answer Date Recorded Frequency of Alcohol Consumption 2-4 times a tue08/23/2019 Average Number of Drinks Not on file 019 Frequency of Binge Drinking Not on file 01/2019 Comments Unknown Sex and Gender Information Value Date Recorded Sex Assigned at Not on file Legal Sex Female 2:47 AM PLUMBING INSTALLER Gender Identity Not on file Sexual Orientation Not on file Obstetrics History Last Filed Vital Signs Vital Sign Reading Time Taken Comments Blood Pressure 125/80 10/23/2019 9:46 AM PLUMBING INSTALLER Pulse 86 10/23/2019 9:46 AM PLUMBING INSTALLER Temperature 36.2 C (97.2 F) 10/23/2019 9:46 AM PLUMBING INSTALLER Respiratory Rate - - Oxygen Saturation 99% 10/10/2019 8:43 AM PLUMBING INSTALLER Inhaled Oxygen Concentration - - Weight 51.3 kg (113 lb) 10/10/2019 8:43 AM PLUMBING INSTALLER Height 147.3 cm (4' 10) 10/10/2019 8:43 AM PLUMBING INSTALLER Body Mass Index 23.62 10/10/2019 8:43 AM PLUMBING INSTALLER Plan of Treatment Not on file [place] [place] [address] MEDICARE SUPPLEMENT INSURANCE MEDICARE [facility] MEDICARE SUPPLEMENT INSURANCE MEDICARE Care Teams Underwear Cutter Relationship Specialty Start Date End Date Moises Domingo MD [address] [place] [address] PCP - General 01/12/13
--- OUTSIDE RECORDS SUMMARY | 2025-06-17 08:09 | XMS_ITS | Referral Summary ---
Author Organization [facility] at the [facility] [place] Address [address] [place] [address] Care Team Providers Care Dean Of Education Name Role Phone Moises Domingo MD Primary Care Provider [phone] Allergies Active Allergy Reactions Criticality Noted Date [...] (MDV) 09/16/2014 Pneumococcal Conjugate PCV 13 09/30/2015 Social History Tobacco Use Types Packs/Day Years Used Date Smoking Tobacco: Never Smokeless Tobacco: Never Alcohol Use Standard Drinks/Week Comments Yes 0 (1 standard drink = 0.6 oz pur e alcohol) AUDIT-C Answer Date Recorded Frequency of Alcohol Consumption 2-4 times a mon th 08/23/2019 Average Number of Drinks Not on file 019 Frequency of Binge Drinking Not on file 01/2019 Comments Unknown Sex and Gender Information Value Date Recorded Sex Assigned at Not on file Legal Sex Female 2:47 AM BUSINESS INSURANCE AGENT Gender Identity Not on file Sexual Orientation Not on file Last Filed Vital Signs Vital Sign Reading Time Taken Comments Blood Pressure 125/80 10/23/2019 9:46 AM BUSINESS INSURANCE AGENT Pulse 86 10/23/2019 9:46 AM BUSINESS INSURANCE AGENT Temperature 36.2 C (97.2 F) 10/23/2019 9:46 AM BUSINESS INSURANCE AGENT Respiratory Rate - - Oxygen Saturation 99% 10/10/2019 8:43 AM BUSINESS INSURANCE AGENT Inhaled Oxygen Concentration - - Weight 51.3 kg (113 lb) 10/10/2019 8:43 AM BUSINESS INSURANCE AGENT Height 147.3 cm (4' 10) 10/10/2019 8:43 AM BUSINESS INSURANCE AGENT Body Mass Index 23.62 10/10/2019 8:43 AM BUSINESS INSURANCE AGENT Plan of Treatment Not on file Insurance [facility] MEDICARE SUPPLEMENT INSURANCE MEDICARE [employer] MEDICARE SUPPLEMENT INSURANCE MEDICARE Care Teams Dean Of Education Relationship Specialty Start Date End Date Moises Domingo MD [address] [place] [id number] PCP - General 01/12/13
== END 2025-06-17 08:03 | disposition home or self-care (01) ==
PROVIDERS: PCP Family Medicine; Visit Provider Family Medicine
DX: Z78.0 Asymptomatic menopausal state (principal); M85.88 Other specified disorders of bone density and structure, other site; M85.852 Other specified disorders of bone density and structure, left thigh; M85.851 Other specified disorders of bone density and structure, right thigh
CPT/HCPCS: 77080

== ENCOUNTER 2025-07-11 15:31 | Outpatient (CLI) | payer MEDICARE, SELFPAY ==
--- NOTE | ~2025-07-11 | MM_ITS ---
EXAMINATION: MM screening [facility] BI w lupillo HISTORY: Screening mammogram TECHNIQUE: Craniocaudal and mediolateral oblique 3-D tomosynthesis images were obtained and synthetic 2-D images were generated. CAD analysis was submitted and interpreted. COMPARISON: 11/07/2023, 02/13/2022, 09/17/2020 BREAST PARENCHYMAL COMPOSITION:Not Dense. There are scattered areas of fibroglandular density. FINDINGS: No suspicious mass, calcification, or architectural distortion are identified in either breast to suggest malignancy. There has been no suspicious interval change. IMPRESSION: No mammographic evidence of malignancy. Recommend routine screening mammography in one year. BI-RADS Category 1: Negative Reviewed, dictated and finalized at location .
== END 2025-07-11 15:32 | disposition home or self-care (01) ==
LOC: ANHFOHIMG 15:33
PROVIDERS: PCP Family Medicine; Visit Provider Family Medicine
DX: Z12.31 Encounter for screening mammogram for malignant neoplasm of breast (principal)
CPT/HCPCS: 77063; 77067

== ENCOUNTER 2025-10-09 15:18 | Outpatient (CLI) | payer MEDICARE, OTHER, SELFPAY ==
--- NOTE | ~2025-10-09 | XR_ITS ---
XR cervical spine min 6V Indication: RT SIDED NECK PAIN RADIATES INTO RT SHOULDER x2 MONTHS Comparison: None Findings: No fracture identified, no subluxation flexion and extension Severe loss of disc height at C3-4 C4-5 C5-6 and C6-7. Soft tissues unremarkable Impression: No acute abnormality. Reviewed, dictated and finalized at location P. TER SALES REPRESENTATIVE Impression: No acute abnormality.
== END 2025-10-09 15:19 | disposition home or self-care (01) ==
LOC: MICIMG 15:22
PROVIDERS: PCP Family Medicine; Visit Provider Family Medicine
DX: M54.12 Radiculopathy, cervical region (principal)
CPT/HCPCS: 72052